=== PATIENT | male | born 1985 | race Caucasian/White ===

== ENCOUNTER 2022-06-23 12:19 | Emergency (ER) | payer BC, SELFPAY ==
[2022-06-23 12:32] VITALS: BP 128/99; PULSE 123; RESP 16; TEMP 37.2; O2SAT 100
--- NOTE | 2022-06-23 13:02 | ED.SKABFB ---
HPI - Skin/Abscess/Foreign Bdy General Chief complaint: Skin/Abscess/Foreign Body Stated complaint: absess Time Seen by Provider: 06/23/22 12:24 Source: patient Mode of arrival: ambulatory Limitations: no limitations History of Present Illness HPI narrative: 36-year-old male presents to [facility] with complaints of possible abscess to his rectal area for the past 6 days. Patient reports that he has noticed a scant amount of yellow-colored drainage coming from the area. Patient reports that he is currently being treated for a fungal infection to his rectal region per his moveman at [place]. Patient reports he also sees GI for history of GERD and has sent them a message for his current symptoms. Patient reports that he also noticed that his left inguinal lymph node has been enlarged the past few days. Patient denies fevers but reports that he has had chills at bedtime for the past few days. Patient is sexually active but denies concern for STDs -patient reports that he has had anal intercourse recently.- MD complaint: abscess/boil Onset (ago): day(s) (6) Quality: burning Pain Consistency: constant Associated symptoms: chills Treatments prior to arrival: none Related Data Home Medications Medication Instructions Recorded Confirmed emtricitabine 100 mg-tenofovir See Rx Instructions .Route .COMPLEX 06/23/22 06/23/22 disoproxil fumarate 150 mg tablet (Truvada) gentamicin 0.1 % topical ointment See Rx Instructions .Route .COMPLEX 06/23/22 06/23/22 Allergies Allergy/AdvReac Type Severity Reaction Status Date / Time No Known Allergies Allergy Verified 06/23/22 12:44 Review of Systems Constitutional: Constitutional: Reports chills, Denies fatigue, Denies fever(s) and Denies weakness Cardiovascular: Cardiovascular: Denies chest pain, Denies rapid heart rate, Denies radiating jaw, neck or arm pain and Denies slow heart rate Respiratory: Respiratory: Denies cough, Denies dyspnea and Denies wheezing Gastrointestinal: Gastrointestinal: Denies nausea and Denies vomiting Integumentary/Breasts: Skin/Breast: Denies rash Comments: Pain to rectum, concern for abscess Endocrine: Endocrine: Denies fatigue Allergic/Immunologic: Allergic/Immunologic: Denies throat swelling, Denies tongue swelling and Denies wheezing PMF Past Medical History Medical History (Updated 06/23/22 @ 13:08 by Ashly Howe APRN) GERD (gastroesophageal reflux disease) Comments At time of signature, I agree with nursing past medical, surgical, social and family history. There is no relevant family history pertinent to the presenting complaint. Exam Const: General: healthy appearing Nutritional Appearance: well nourished Orientation/consciousness: patient oriented x3 Limitations: no limitations Eyes: Conjunctivae: conjunctivae normal Neck: Neck: normal visual inspection Resp: Effort & Inspection: normal respiratory effort and not labored Auscultation: clear to auscultation bilaterally, no rales, no rhonchi and no wheezes Cardio: Rate: regular rate Rhythm: regular rhythm Heart sounds: no murmurs GI: Inspection: non-distended Auscultation: normal bowel sounds Other: There are small external hemorrhoids noted. There is a small hard area to rectum which is concerning for abscess. There is no drainage, bruising or bleeding noted. : General: Yes bladder normal to palpation Other: Left inguinal lymph node is enlarged upon palpation. Back/Spine/Pelvis: Back: no CVA tenderness Skin: General skin exam: normal color Rashes: no rashes Wounds: no wounds Neuro: General: patient oriented x3 Speech: normal speech Gait exam (Neuro): Normal gait present Psych: Mental Status: mental status grossly normal Affect: normal affect Course Course Level of Care: Express Care Visit Vital Signs Vital signs: Vital Signs Temperature 37.2 C 06/23/22 12:32 Pulse Rate 123 H 06/23/22 12:32 Respiratory Rate 16 06/23/22
== END 2022-06-23 13:10 | disposition left against medical advice (07) ==
PROVIDERS: Emergency Provider Nurse Practitioner Family
DX: K61.1 Rectal abscess (principal); K21.9 Gastro-esophageal reflux disease without esophagitis
CPT/HCPCS: 99213; G0463